=== PATIENT | female | born 1975 | race Caucasian/White ===

== ENCOUNTER 2017-02-14 21:10 | Emergency (ER) | payer SELFPAY ==
--- NOTE | 2017-02-14 21:39 | ER Document Report ---
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 She has been having right inner knee pain for a couple of days with swelling. No redness. She believes she may have a blood clot. Denies any long distance travel or prolonged sitting. States she has been taking an 81 mg aspirin for the past few days. Patient complains of intermittent chest pain suggest her today but denies shortness of breath. Patient states she has a history of Graves' disease and enlarged right atrium. I have greeted and performed a rapid initial assessment of this patient. A comprehensive ED assessment and evaluation of the patient, analysis of test results and completion of the medical decision making process will be conducted by additional ED providers. TRAVEL OUTSIDE OF THE [place] IN LAST 30 DAYS: No - Related Data Allergies/Adverse Reactions: diphenhydramine [From Benadryl] Allergy (Verified 02/14/17 21:34) Past Medical History Past Surgical History: Reports: Hx Oral Surgery - Immunizations Hx Diphtheria, Pertussis, Tetanus Vaccination: No Physical Exam - Vital signs Vitals: Temp Pulse Resp BP Pulse Ox 98.6 F 86 16 120/78 99 02/14/17 21:28 02/14/17 21:28 02/14/17 21:28 02/14/17 21:28 02/14/17 21:28 - Cardiovascular Rhythm: Regular Heart sounds: Normal auscultation Course - Vital Signs Vital signs: Temp Pulse Resp BP Pulse Ox 98.6 F 86 16 120/78 99 02/14/17 21:28 02/14/17 21:28 02/14/17 21:28 02/14/17 21:28 02/14/17 21:28
--- NOTE | 2017-02-14 23:30 | ER Document Report ---
ED General - General Chief Complaint: Leg Pain Stated Complaint: LEG PAIN Notes: Patient is a 41-year-old female who presents with complaint of pain in the right leg. She has a history of factor V disease. She's never had DVT or blood clots. She says pain has been there for a few days. She wants to make sure that she hasn't felt a DVT. She was asked about chest pain in triage. Patient did mention that she sometimes has chest pain. Patient says that she has intermittent quick sharp pains that last only a few seconds. She says she' s been having these pains for a long time and that this is nothing new. She says these pains have been ongoing long before she ever had any pain in her leg. She has no history of coronary disease. She's had no difficulty breathing. She has no fevers. No cough or congestion. No other complaints at this time. TRAVEL OUTSIDE OF THE [place] IN LAST 30 DAYS: No - Related Data Allergies/Adverse Reactions: diphenhydramine [From Benadryl] Allergy (Verified 02/14/17 21:34) Past Medical History - Social History Smoking Status: Never Smoker Chew tobacco use (# tins/day): No Frequency of alcohol use: None Drug Abuse: None Family History: Reviewed & Not Pertinent Renal/ Medical History: Denies: Hx Peritoneal Dialysis Past Surgical History: Reports: Hx Oral Surgery - Immunizations Hx Diphtheria, Pertussis, Tetanus Vaccination: No Review of Systems - Review of Systems Notes: My Normal Review Basic REVIEW OF SYSTEMS: CONSTITUTIONAL : Denies fever, chills, or sweats. Denies recent illness. CARDIOVASCULAR: Intermittent chest pain. RESPIRATORY: Denies cough, cold, or chest congestion. Denies shortness of breath, difficulty breathing, or wheezing. GASTROINTESTINAL: Denies abdominal pain. Denies nausea, vomiting, or diarrhea. Denies constipation. Last BM: MUSCULOSKELETAL: Right leg pain. SKIN: Denies rash or skin lesions. NEUROLOGICAL: Denies altered mental status or loss of consciousness. Denies headache. Denies weakness or paralysis or loss of use of either side. Denies problems with gait or speech. Denies sensory or motor loss. ALL OTHER SYSTEMS REVIEWED AND NEGATIVE. Physical Exam - Vital signs Vitals: Temp Pulse Resp BP Pulse Ox 98.6 F 86 16 120/78 99 02/14/17 21:28 02/14/17 21:28 02/14/17 21:28 02/14/17 21:28 02/14/17 21:28 - Notes Notes: General Appearance: Well nourished, alert, cooperative, no acute distress, no obvious discomfort. Well-appearing. Vitals: reviewed, See vital signs table. Lungs: No wheezing, No rales, No rhonci, No accessory muscle use, good air exchange bilaterally. Heart: Normal rate, Regular rythm, No murmur, no rub Extremities: strength 5/5 in all extremities, good pulses in all extremities, small area with mild reproducible pain palpation over the medial aspect of the right leg just medial to the knee, no redness or swelling to the leg. No edema. Skin: warm, dry, appropriate color, no rash Neuro: speech clear, oriented x 3, normal affect, responds appropriately to questions. Course - Vital Signs Vital signs: Temp Pulse Resp BP Pulse Ox 97.9 F 81 16 111/80 100 02/15/17 00:14 02/15/17 00:14 02/15/17 00:14 02/15/17 00:14 02/15/17 00:14 - Transfer of Care Notes: 02/15/17 05:12 Unfortunately we do not have ultrasound at night to rule out a DVT. I did discuss this with the patient. I informed her that she is awoken stay at night in the ER and will get in the morning where she could return to the ER in the morning when we do have ultrasound and it would be obtained at that time. Patient prefers to go home and then come back to ER. I did talk about providing one shot of Lovenox in the meantime. I did talk to her about the risks and benefits of Lovenox. At this time patient does not want to Lovenox shots and says she would return to ER in the morning for the ultrasound. I do not suspect patient's chest pain is related to PE and/or Ernie disease. Her pain is very sharp and intermittent. Not pleuritic. Does not affect but breathing. She's not tachycardic. She's not tachypneic. Her pain is been ongoing and intermittent for a long time. I do not think she needs any further workup other than EKG in regards to her chest pain. Patient will be discharged home and encouraged return immediately in the morning for her ultrasound. Patient agrees with plan and will be discharged home. Dictation of this chart was performed using voice recognition software; therefore, there may be some unintended grammatical errors. Discharge - Discharge Clinical Impression: Leg pain Qualifiers: Laterality: right Qualified Code(s): M79.604 - Pain in right leg Condition: Good Disposition: HOME, SELF-CARE Additional Instructions: Please return around 7am for reevaluation and for ultrasound of your leg to rule out a blood clot in your leg. Please return to the ER immediately if you have chest pain, difficulty breathing, or feel unwell.
[2017-02-15 00:16] VITALS: BP 111/80
--- NOTE | 2017-02-15 12:37 | EKG REPORT ---
SEVERITY:- NORMAL ECG - SINUS RHYTHM : Confirmed by: Zeynep Delgado 15-Feb-2017 12:36:31
== END 2017-02-15 00:17 | disposition home or self-care (01) ==
LOC: ER 21:10
DX: M79.604 Pain in right leg (principal)
CPT/HCPCS: 71010; 93005; 93010; 99283

== ENCOUNTER 2017-02-15 06:45 | Emergency (ER) | payer SELFPAY ==
--- NOTE | 2017-02-15 07:20 | ER Document Report ---
ED Extremity Problem, Lower - General Time seen by provider: 07:20 Mode of Arrival: Ambulatory Information source: Patient TRAVEL OUTSIDE OF THE [place] IN LAST 30 DAYS: No - HPI Patient complains to provider of: Pain Location: Leg Associated symptoms: Other - See above - General Chief Complaint: Leg Pain Stated Complaint: leg pain Notes: Patient is a 41 year old female, with a past medical history including Factor 5 deficiency and Graves' disease (resolved), who presents to the emergency department complaining of right leg pain onset several days ago. Patient was seen at this facility last night and told to return this morning for a Doppler to check for possible blood clots. Patient states that the pain in located on the inside of her right knee and worsens throughout the day. Patient is not currently on regular medications and does not have a PCP. Patient reports she was seeing a count team clerk for a while and was told that she had an enlarged right atrium and that her heart races at rest but she had to stop seeing him for insurance reasons. (CHRISTELLE MENDOZA) - Related Data Allergies/Adverse Reactions: diphenhydramine [From Benadryl] Allergy (Verified 02/15/17 06:53) Past Medical History - General Information source: Patient - Social History Smoking Status: Never Smoker Chew tobacco use (# tins/day): No Frequency of alcohol use: None Drug Abuse: None Family History: Reviewed & Not Pertinent - Past Medical History Cardiac Medical History: Reports: Other - Hx factor 5 deficiency Endocrine Medical History: Reports: Hx Graves' Disease - resolved Past Surgical History: Reports: Hx Oral Surgery - Immunizations Hx Diphtheria, Pertussis, Tetanus Vaccination: No Review of Systems - Review of Systems Constitutional: No symptoms reported EENT: No symptoms reported Cardiovascular: No symptoms reported Respiratory: No symptoms reported Gastrointestinal: No symptoms reported Genitourinary: No symptoms reported Female Genitourinary: No symptoms reported Musculoskeletal: See HPI, Other - leg pain Skin: No symptoms reported Hematologic/Lymphatic: No symptoms reported Neurological/Psychological: No symptoms reported -: Yes All other systems reviewed and negative Physical Exam - Vital signs Interpretation: Normal - General General appearance: Appears well, Alert - HEENT Head: Normocephalic, Atraumatic - Respiratory Respiratory status: No respiratory distress - Extremities General upper extremity: Normal inspection General lower extremity: Tender - Right leg soft and nontender over femoral and tibial veins. Right knee is tender to palpation medially over medial collateral ligament and medial tibial condyle area - Neurological Neuro grossly intact: Yes Cognition: Normal Orientation: AAOx4 [place] Coma Scale Eye Opening: Spontaneous [place] Coma Scale Verbal: Oriented [place] Coma Scale Motor: Obeys Commands [place] Coma Scale Total: 15 Speech: Normal - Psychological Associated symptoms: Normal affect, Normal mood - Skin Skin Temperature: Warm Skin Moisture: Dry Skin Color: Normal Course - Re-evaluation Re-evalutation: 02/15/17 09:13 Venous Doppler is negative for DVT (TAMMIE CHENG) - Vital Signs Vital signs: Temp Pulse Resp BP Pulse Ox 98.4 F 87 16 108/74 99 02/15/17 06:51 02/15/17 06:51 02/15/17 06:51 02/15/17 06:51 02/15/17 06:51 Discharge - Discharge Clinical Impression: Right medial knee pain Condition: Stable Disposition: HOME, SELF-CARE Additional Instructions: Your pain appears to be coming from the medial aspect of your knee, particularly the tissues and ligaments overlying the medial tibial plateau. This may be due to contusion, strain or overuse. There is no evidence of blood clots on venous Doppler. Treatment for this type of pain is rest, moist heat, and anti-inflammatory medication. Follow-up with local medical doctor if not improving. Scribe Attestation: 02/15/17 09:15 I personally performed the services described in the documentation, reviewed and edited the documentation which was dictated to the scribe in my presence, and it accurately records my words and actions. (TAMMIE CHENG) Scribe Documentation - Scribe Written by Abdi:: abdi Lyn, 02/15/17, 0745 acting as scribe for :: Red
[2017-02-15 09:35] VITALS: BP 108/75
--- NOTE | 2017-02-16 17:47 | XCELERA REPORT ---
[address] [address] Lower Extremity Venous Evaluation Name: EVELYN GAMBOA Age: 41 yrs Gender: Female : 1975 Patient Status: Emergency Patient Location: ER Study Date: 02/15/2017 08:54 AM Procedure: Color flow and duplex imaging of the veins of the right lower extremity as well as the left Common Femoral vein. Reason For Study: R leg pain, factor V Ordering Physician: TAMMIE CHENG Performed By: Wilbert Gaspar Right Sided Venous Evaluation Normal vessel filling wall to wall, compression and augmentation as well as Colour flow down to the infrageniculate veins. Left Sided Venous Evaluation The left common femoral vein is fully compressible. Spontaneous and phasic flow is present in the left common femoral vein. Critical Findings Called in to Dr Cheng. Interpretation Summary No duplex evidence of DVT or obstruction in the right lower extremity nor in the left Common Femoral vein. : TAMMIE CHENG > Jean Pearce
== END 2017-02-15 09:34 | disposition home or self-care (01) ==
LOC: ER 06:45
DX: M25.561 Pain in right knee (principal); D68.2 Hereditary deficiency of other clotting factors; Z88.8 Allergy status to other drugs, medicaments and biological substances
CPT/HCPCS: 93971; 99283

== ENCOUNTER 2019-03-03 16:08 | Emergency (ER) | payer SELFPAY ==
[2019-03-03 16:34] VITALS: BP 106/68
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
[2019-03-03 18:49] LABS: ABSOLUTE BASOPHILS # (AUTO) 0.1 10^3/uL (0.0-0.2); ABSOLUTE EOSINOPHILS # (AUTO) 0.7 10^3/uL (0.0-0.6); ABSOLUTE MONOCYTES (AUTO) 0.6 10^3/uL (0.1-1.4); ABSOLUTE NEUT (AUTO) 4.7 10^3/uL (1.7-8.2); BASOPHILS % (AUTO) 1.1 % (0-2); EOSINOPHILS % (AUTO) 7.2 % (0-6); HEMATOCRIT 29.3 % (36.0-47.0); HEMOGLOBIN 9.6 g/dL (12.0-15.5); MEAN CORPUSCULAR HEMOGLOBIN 24.6 pg (27.0-33.4); MEAN CORPUSCULAR HGB CONC 32.6 g/dL (32.0-36.0); MEAN CORPUSCULAR VOLUME 76 fl (80-97); MONOCYTES % (AUTO) 6.7 % (3-13); PLATELET COUNT 404 10^3/uL (150-450); RED BLOOD COUNT 3.88 10^6/uL (3.72-5.28); RED CELL DISTRIBUTION WIDTH 17.2 % (11.5-14.0); TOTAL CELLS COUNTED % (AUTO) 100 %; WHITE BLOOD COUNT 9.1 10^3/uL (4.0-10.5)
[2019-03-03 18:56] LABS: INTERNATIONAL RATION (INR) 0.89; PROTHROMBIN TIME 12.5 SEC (11.4-15.4)
[2019-03-03 18:57] LABS: PARTIAL THROMBOPLASTIN TIME 28.6 SEC (23.5-35.8)
--- NOTE | 2019-03-03 19:09 | ER Document Report ---
ED Head/Face/Scalp Injury - General Chief Complaint: Head Injury without LOC Stated Complaint: HEAD INJURY Time Seen by Provider: 03/03/19 17:51 Primary Care Provider: [facility] [Provider Group] - Follow up as needed [facility] [Provider Group] - Follow up as needed Mode of Arrival: Ambulatory Information source: Patient Notes: 43-year-old female presented to ED for complaint of head injury around 1 PM. Patient states she was outside working with her father and when there was a 2 by a forward leaning up against the house. She states that accidentally fell hitting her in the head. She denies any loss of consciousness nausea or vomiting but does have a headache. 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 Patient stated she also had a large bruise to the left side of her forehead. Patient is alert oriented respirations regular and unlabored speaking in full sentences walks with a even steady gait. Pupils were equal and reactive to light. TRAVEL OUTSIDE OF THE [place] IN LAST 30 DAYS: No - HPI Patient complains to provider of: Injury, Pain, Swelling - Forehead Injury to: Forehead Location of problem: Forehead Occurred: This afternoon Where: Home, Outdoors Timing: Still present Context: Other - 2 x 2 fell from leaning against a house and hit her in the head Loss consciousness: No loss of consciousness Remembers: Injury, Coming to hospital - Related Data Allergies/Adverse Reactions: diphenhydramine [From Benadryl] Allergy (Verified 03/03/19 16:11) Past Medical History - General Information source: Patient - Social History Smoking Status: Never Smoker Cigarette use (# per day): No Chew tobacco use (# tins/day): No Smoking Education Provided: No Frequency of alcohol use: None Drug Abuse: None Lives with: Family Family History: Reviewed & Not Pertinent Patient has suicidal ideation: No Patient has homicidal ideation: No - Medical History Medical History: Other - Factor V deficiency - Past Medical History Cardiac Medical History: Reports: Other - Factor V deficiency Pulmonary Medical History: Reports: None EENT Medical History: Reports: None Endocrine Medical History: Reports: Hx Graves' Disease - resolved Renal/ Medical History: Reports: None Malignancy Medical History: Reports: None GI Medical History: Reports: None Musculoskeletal Medical History: Reports None Skin Medical History: Reports None Psychiatric Medical History: Reports: None Traumatic Medical History: Reports: None Infectious Medical History: Reports: None Past Surgical History: Reports: Hx Oral Surgery - Immunizations Immunizations up to date: No Hx Diphtheria, Pertussis, Tetanus Vaccination: No Review of Systems - Review of Systems Constitutional: No symptoms reported EENT: Blurred vision Cardiovascular: No symptoms reported Respiratory: No symptoms reported Gastrointestinal: No symptoms reported. denies: Nausea, Vomiting Genitourinary: No symptoms reported Female Genitourinary: No symptoms reported Musculoskeletal: No symptoms reported Skin: Other - Painful swelling not to the left forehead Hematologic/Lymphatic: Other - Factor V deficiency Neurological/Psychological: Headaches. denies: Weakness, Gait changes, Loss of power, Lost consciousness -: Yes All other systems reviewed and negative Physical Exam - Vital signs Vitals: Temp Pulse Resp BP Pulse Ox 98.2 F 76 18 106/68 100 03/03/19 16:32 03/03/19 16:32 03/03/19 16:32 03/03/19 16:32 03/03/19 16:32 Interpretation: Normal - General General appearance: Appears well, Alert - HEENT Head: Ecchymosis, Tenderness. No: Abrasions, Junior's sign, Open wounds, Racoon's eyes - Left forehead Eyes: Normal Conjunctiva: Normal Cornea: Normal Extraocular movements intact: Yes Eyelashes: Normal Pupils: PERRL Visual berman normal: Yes Ears: Normal External canal: Normal Tympanic membrane: Normal Sinus: Normal Nasal: Normal Mouth/Lips: Normal Mucous membranes: Normal Pharynx: Normal Neck: Normal - Respiratory Respiratory status: No respiratory distress Chest status: Nontender Breath sounds: Normal Chest palpation: Normal - Cardiovascular Rhythm: Regular Heart sounds: Normal auscultation Murmur: No - Abdominal Inspection: Normal Distension: No distension Bowel sounds: Normal Tenderness: Nontender Organomegaly: No organomegaly - Back Back: Normal, Nontender - Extremities General upper extremity: Normal inspection, Nontender, Normal color, Normal ROM, Normal temperature General lower extremity: Normal inspection, Nontender, Normal color, Normal ROM, Normal temperature, Normal weight bearing. No: Jenifer's sign - Neurological Neuro grossly intact: Yes Cognition: Normal Orientation: AAOx4 Warren Coma Scale Eye Opening: Spontaneous [place] Coma Scale Verbal: Oriented Warren Coma Scale Motor: Obeys Commands Warren Coma Scale Total: 15 Speech: Normal Motor strength normal: LUE, RUE, LLE, RLE Sensory: Normal - Psychological Associated symptoms: Normal affect, Normal mood - Skin Skin Temperature: Warm Skin Moisture: Dry Skin Color: Normal Course - Re-evaluation Re-evalutation: 03/03/19 20:[address] and lab work with patient and written report of CT and lab were given to patient to follow-up with her primary doctor. Patient's CAT scan was negative at this time. Patient has a swollen bruised area to the left forehead. Pupils equal and react to light, patient walks with a even steady gait. Patient answering all questions appropriately. No gross neurological deficits n oted. - Vital Signs Vital signs: Temp Pulse Resp BP Pulse Ox 98.2 F 76 18 106/68 100 03/03/19 16:32 03/03/19 16:32 03/03/19 16:32 03/03/19 16:32 03/03/19 16:32 - Laboratory Result Diagrams: 03/03/19 18:30 Laboratory results interpreted by me: 03/03/19 18:30 Hgb 9.6 L Hct 29.3 L MCV 76 L MCH 24.6 L RDW 17.2 H Eosinophils % 7.2 H Absolute Eosinophils 0.7 H - Diagnostic Test Radiology reviewed: Image reviewed, Reports reviewed Discharge - Discharge Clinical Impression: Head injury Qualifiers: Encounter type: initial encounter Qualified Code(s): S09.90XA - Unspecified inj ury of head, initial encounter Condition: Stable Disposition: HOME, SELF-CARE Instructions: Family Physicians / Practices Additional Instructions: HEAD INJURY PRECAUTIONS: At this point, there is no evidence that your head injury is serious. Observation is necessary, however. Take only clear liquids for the first few hours, unless told otherwise by the doctor. If no pain medication was prescribed, you may take acetaminophen according to the directions on the bottle. Do not take any medication that may alter your level of alertness (unless you've discussed it with the doctor rama james). Limit activity for the first 24 hours. Bed rest is best. During the first 24 hours, check to see approximately every two to three hours that the patient is easily arousable, responds normally, and can perform common tasks such as walking without difficulty. Contact your doctor or go to the hospital if any of the following things occur: Persistent vomiting, difficulty in arousing the patient, worsening or continued headache, or failure to improve as expected. Head injuries can cause symptoms that persist for a few days or even a few weeks. CONTUSION: Your injury has resulted in a contusion -- a crushing of the deep tissues. No injury to important structures was detected during the physician's exam. Contusions vary in the amount of pain they cause, and in the length of time required for healing. Typically, the area will become bruised, and will remain painful to touch for two or three weeks. However, most patients are back to working and playing within a few days. After the initial period of rest and cold-packs, your symptoms (together with the doctor's recommendations) will determine how rapidly you can get back to full activity. Usually this means "do what feels okay, but don't do things that hurt." If re-examination was recommended, it's important to follow up as instructed. Call the doctor or return any time if pain increases, if swelling becomes severe, if you develop numbness or weakness in an injured extremity, or if any other alarming symptoms occur. USE OF TYLENOL (ACETAMINOPHEN): Acetaminophen may be taken for pain relief or fever control. It's much safer than aspirin, offering a wider range of "safe" dosages. It is safe during . Some brand names are Tylenol, Panadol, Datril, Anacin 3, Tempra, and Liquiprin. Acetaminophen can be repeated every four hours. The following are maximum recommended dosages: WEIGHT Dose Drops Elixir Chewable(80mg) (LBS.) drprs=droppers tsp=teaspoon 6 40 mg 0.4 ml (1/2) 6-11 80 mg 0.8 ml (full) tsp 1 tab 12-16 120 mg 1 1/2 drprs 3/4 tsp 1 1/2 tabs 17-23 160 mg 2 drprs 1 tsp 2 tabs 24-30 240 mg 3 drprs 1 1/2 tsp 3 tabs 30-35 320 mg 2 tsp 4 tabs 36-41 360 mg 2 1/4 tsp 4 1/2 tabs 42-47 400 mg 2 1/2 tsp 5 tabs 48-53 480 mg 3 tsp 6 tabs 54-59 520 mg 3 1/4 tsp 6 1/2 tabs 60-64 560 mg 3 1/2 tsp 7 tabs 65-70 600 mg 3 3/4 tsp 7 1/2 tabs 71-76 640 mg 4 tsp 8 tabs 77-82 720 mg 4 1/2 tsp 9 tabs 83-88 800 mg 5 tsp 10 tabs >89 pounds or adults 650 mg to 900 mg Acetaminophen can be repeated every four hours. Maximum dose not to exceed 4000 mg a day. These maximum recommended dosages are slightly higher than the dosages written on the product container, but these dosages are very safe and below the toxic dosage for acetaminophen. ICE PACKS: Apply ice packs frequently against the painful area. Many different schedules are recommended, such as "20 minutes on, 20 minutes off" or "one hour ice, two hours rest." If you need to work, you may need to go longer between i ce treatments. You should plan to have the area ice packed AT LEAST one fourth of the time. The ice should be applied over the wrap, tape, or splint, or over a layer of cloth -- not directly against the skin. Some ice bags have a built-in cloth and can be put directly on the skin. I have given you a written report of your lab work and your CT results. Please call a primary doctor in follow-up within the next 3-5 days or return to the ED for any increase in symptoms. I have given you a and head injury precautions if you have any change in orientation mentation any change in your movement or strength in your arms or any other concerning symptoms. Your hemoglobin and hematocrit are low. He states you do not have a doctor you do not follow-up with Dr. you are vegetarian and you are anemic. These need to be monitored. You also need to be monitored for your factor V deficiency. I have given you the name and number of the [facility] as well as [facility] and other primary care doctors. As we have discussed you need to go and apply for Medicaid and then take your denial letter with you to [facility] to get established. You could call [facility] and discussed with them what all you need to do besides what I have given you. FOLLOW-UP CARE: If you have been referred to a physician for follow-up care, [facility] as you were instructed or within the next two days. If you experience worsening or a significant change in your symptoms, notify the physician immediately or return to the Emergency Department at any time for re-evaluation. Referrals: [facility] [Provider Group] - Follow up as needed [facility] [Provider Group] - Follow up as needed
== END 2019-03-03 19:14 | disposition home or self-care (01) ==
LOC: ER 16:08
DX: S09.90XA Unspecified injury of head, initial encounter (principal); W20.8XXA Other cause of strike by thrown, projected or falling object, initial encounter; Y92.009 Unspecified place in unspecified non-institutional (private) residence as the place of occurrence of the external cause; D68.51 Activated protein C resistance
CPT/HCPCS: 36415; 70450; 85025; 85610; 85730; 99284

== ENCOUNTER 2019-04-13 19:41 | Emergency (ER) | payer SELFPAY ==
[2019-04-13 19:57] VITALS: BP 123/76
--- NOTE | 2019-04-13 20:09 | ER Document Report ---
ED Medical Screen (RME) - General Chief Complaint: S/S of Possible Stroke Stated Complaint: FACIAL PAIN Time Seen by Provider: 04/13/19 20:04 Mode of Arrival: Ambulatory Information source: Patient Notes: 43-year-old female presented to ED for complaint of numbness to the bottom lip to spread to the chin and the left cheek. When I touched her cheek with my finger and asked to which she did not touch she was not able to tell me. When I touched it with the end of the 20-gauge needle without break in the skin she knew exactly where I had touched her. Patient's facial expressions are equal there is no droop. There is no palmar drift. Smile is equal eyebrows raise are equal pupils are equal and react to light. 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 Consulted Dr. Nina who stated to blood work CT the head and she will be seen by another provider. I have greeted and performed a rapid initial assessment of this patient. A comprehensive ED assessment and evaluation of the patient, analysis of test results and completion of medical decision making process will be conducted by an additional ED providers. Dictation of this chart was performed using voice recognition software; therefore, there may be some unintended grammatical errors. TRAVEL OUTSIDE OF THE [place] IN LAST 30 DAYS: No - Related Data Allergies/Adverse Reactions: diphenhydramine [From Benadryl] Allergy (Verified 03/03/19 16:11) Past Medical History Endocrine Medical History: Reports: Hx Graves' Disease - resolved Renal/ Medical History: Denies: Hx Peritoneal Dialysis Past Surgical History: Reports: Hx Oral Surgery - Immunizations Immunizations up to date: No Hx Diphtheria, Pertussis, Tetanus Vaccination: No Physical Exam - Vital signs Vitals: Temp Pulse Resp BP Pulse Ox 98.5 F 78 16 123/76 100 04/13/19 19:55 04/13/19 19:55 04/13/19 19:55 04/13/19 19:55 04/13/19 19:55 Course - Vital Signs Vital signs: Temp Pulse Resp BP Pulse Ox 98.5 F 78 16 123/76 100 04/13/19 19:55 04/13/19 19:55 04/13/19 19:55 04/13/19 19:55 04/13/19 19:55
--- NOTE | 2019-04-13 20:43 | RADIOLOGY REPORT (SQ) ---
EXAM DESCRIPTION: CT HEAD WITHOUT IV CONTRAST COMPLETED DATE/TME: 04/13/2019 20:10 CLINICAL HISTORY: 43 years, Female, numbness to left lower face COMPARISON: 03/03/2019. TECHNIQUE: CT brain without contrast. This exam was performed according to our departmental dose optimization program which includes use of automated exposure control, adjustment of the mA and/or kV according to patient size and/or use of iterative reconstruction technique. Images stored on PACS. All CT scanners at this facility use dose modulation, iterative reconstruction, and/or weight based dosing when appropriate to reduce radiation dose to as low as reasonably achievable (ALARA). [facility]: Dose Right [facility]: CareDose [facility]: Dose Right [facility]: Teradose 4D [facility]: Language Logistics LIMITATIONS: None. FINDINGS: The ventricles, sulci, and cisterns are within normal limits. The sharp-white matter differentiation is preserved. There is no mass effect, midline shift, intra- or extra-axial fluid collection/acute hemorrhage. The osseous structures are unremarkable. The paranasal sinuses and mastoid air cells are clear. IMPRESSION: No acute intracranial abnormalities. TECHNICAL DOCUMENTATION: Quality ID # [id number]: Final reports with documentation of one or more dose reduction techniques (e.g., Automated exposure control, adjustment of the mA and/or kV according to patient size, use of iterative reconstruction technique) copyright 2011 [email or web address]- All Rights Reserved
[2019-04-13 20:48] LABS: APPEARANCE,URINE CLEAR; BILIRUBIN,URINE NEGATIVE (NEGATIVE); COLOR,URINE YELLOW; GLUCOSE, URINE NEGATIVE (NEGATIVE); KETONES,URINE 20 mg/dL (NEGATIVE); LEUKOCYTE ESTERASE,URINE NEGATIVE (NEGATIVE); NITRITE,URINE NEGATIVE (NEGATIVE); PROTEIN,URINE NEGATIVE (NEGATIVE); URINE SPECIFIC GRAVITY 1.026; UROBILINOGEN,URINE NEGATIVE mg/dL (<2.0)
[2019-04-13] MEDS ORDERED: CLINDAMYCIN HCL 150 MG CAPSULE PO ONE (22:03)
--- NOTE | 2019-04-13 22:05 | ER Document Report ---
ED General - General Chief Complaint: S/S of Possible Stroke Stated Complaint: FACIAL PAIN Time Seen by Provider: 04/13/19 20:04 Mode of Arrival: Ambulatory Notes: Patient is a 43-year-old female with past medical history of Graves' disease who presents with complaints of paresthesias to her left mandibular region. Patient states that it started earlier today, progressed to involve most of the lower portion of her left jaw and lip. Describes it as a sensation of paresthesias or tingling but denies true loss of sensation. Denies any motor weakness to the face. Denies symptoms any other location. Regards symptoms as being mild, constant since onset. No exacerbating or alleviating factors. Denies headache, fever or constitutional symptoms. No history of similar symptoms in the past. Has not seen her primary care physician regarding today's concerns. TRAVEL OUTSIDE OF THE [place] IN LAST 30 DAYS: No - Related Data Allergies/Adverse Reactions: diphenhydramine [From Benadryl] Allergy (Verified 03/03/19 16:11) Past Medical History - General Information source: Patient - Social History Smoking Status: Never Smoker Frequency of alcohol use: None Drug Abuse: None Lives with: Family Family History: Reviewed & Not Pertinent Patient has suicidal ideation: No Patient has homicidal ideation: No Endocrine Medical History: Reports: Hx Graves' Disease - resolved Renal/ Medical History: Denies: Hx Peritoneal Dialysis Past Surgical History: Reports: Hx Oral Surgery - Immunizations Immunizations up to date: No Hx Diphtheria, Pertussis, Tetanus Vaccination: No Review of Systems - Review of Systems Notes: Constitutional: Negative for fever. HENT: Negative for sore throat. Eyes: Negative for visual changes. Cardiovascular: Negative for chest pain. Respiratory: Negative for shortness of breath. Gastrointestinal: Negative for abdominal pain, vomiting or diarrhea. Genitourinary: Negative for dysuria. Musculoskeletal: Negative for back pain. Skin: Negative for rash. Neurological: Negative for headaches, weakness or numbness. Positive for paresthesias to the left lower face 10 point ROS negative except as marked above and in HPI. Physical Exam - Vital signs Vitals: Temp Pulse Resp BP Pulse Ox 98.5 F 78 16 123/76 100 04/13/19 19:55 04/13/19 19:55 04/13/19 19:55 04/13/19 19:55 04/13/19 19:55 Interpretation: Normal Notes: PHYSICAL EXAMINATION: GENERAL: Well-appearing, well-nourished and in no acute distress. HEAD: Atraumatic, normocephalic. EYES: Pupils equal round and reactive to light, extraocular movements intact, sclera anicteric, conjunctiva are normal. ENT: nares patent, oropharynx clear without exudates. Moist mucous membranes. NECK: Normal range of motion, supple without lymphadenopathy LUNGS: Breath sounds clear to auscultation bilaterally and equal. No wheezes rales or rhonchi. HEART: Regular rate and rhythm without murmurs ABDOMEN: Soft, nontender, normoactive bowel sounds. No guarding, no rebound. No masses appreciated. EXTREMITIES: Normal range of motion, no pitting or edema. No cyanosis. NEUROLOGICAL: Face symmetric. Tongue protrudes midline. Extraocular motions intact. Pupils are 2 mm and equally reactive. Normal speech, normal gait. 5 out of 5 strength in both the distal and proximal upper and lower extremities bilaterally. Sensation is grossly intact throughout. Finger to nose testing normal. Pronator drift normal. PSYCH: Normal mood, normal affect. SKIN: Warm, Dry, normal turgor, no rashes or lesions noted. Course - Re-evaluation Re-evalutation: 04/13/19 22:03 Patient presents with paresthesias over her left mandible. The patient has no focal neurologic deficits on exam. NIH stroke scale is 0. She does not have any facial droop. She does have poor dentition, could be some irritation from a dental infection versus a possible neuropraxia of branch 3 of the trigeminal nerve which seems much less likely. CVA not on differential given absence of any neurologic findings or any true loss of sensation as well as patient's characterization of very localized area of paresthesias. Patient likewise in agreement. CT of the head ordered in triage noted to be normal. No indication for labs or further imaging. At this time will discharge with return precautions and follow-up recommendations. Verbal discharge instructions given a the bedside and opportunity for questions given. Medication warnings reviewed. Patient is in agreement with this plan and has verbalized understanding of return precautions and the need for primary care follow-up in the next 24-72 hours. - Vital Signs Vital signs: Temp Pulse Resp BP Pulse Ox 98.5 F 78 11 L 123/76 98 04/13/19 19:55 04/13/19 20:05 04/13/19 22:00 04/13/19 20:05 04/13/19 22:00 - Laboratory Laboratory results interpreted by me: 04/13/19 20:20 Urine Ketones 20 H Urine Blood SMALL H - Diagnostic Test Radiology reviewed: Image reviewed, Reports reviewed Radiology results interpreted by me: 04/13/19 22:04 CT head: No acute intracranial bleed or mass Discharge - Discharge Clinical Impression: Facial tingling, Dental caries Condition: Good Disposition: HOME, SELF-CARE Additional Instructions: You were seen today for some tingling over the your left lower jaw. The exact cause is uncertain but could be related to a dental infection versus a possible irritation of your trigeminal nerve. Please take the antibodies as prescribed. Take ibuprofen 600 mg every 6 hours for the next 1 week to see if this helps resolve your symptoms. Please return to the emergency department immediately if you have progression of your symptoms, focal weakness, loss of sensation, severe headache, fever, or any other symptoms that are worrisome to you.
== END 2019-04-13 22:41 | disposition home or self-care (01) ==
LOC: ER 19:41
DX: R20.2 Paresthesia of skin (principal); K02.9 Dental caries, unspecified
CPT/HCPCS: 70450; 81001; 99284

== ENCOUNTER → 2019-08-20 | Outpatient (CLI) | payer MEDICAID ==
--- NOTE | 2019-08-20 14:16 | RADIOLOGY REPORT (SQ) ---
EXAM DESCRIPTION: LUMBAR SPINE COMPLETE COMPLETED DATE/TIME: 08/20/2019 1:19 pm REASON FOR STUDY: OTHER INTERVERTEBRAL DISC DISPLACEMENT, LUMBAR REGION M51.26 OTHER INTERVERTEBRAL DISC DISPLACEMENT, LUMBAR REGION COMPARISON: None. NUMBER OF VIEWS: Five views including obliques. TECHNIQUE: AP, lateral, oblique, and sacral radiographic images acquired of the lumbar spine. LIMITATIONS: None. FINDINGS: MINERALIZATION: Normal. SEGMENTATION: Normal. No transitional anatomy. ALIGNMENT: Straightening of the normal lumbar lordosis. VERTEBRAE: Maintained height. No fracture or worrisome bone lesion. DISCS: Mild disc height loss and osteophytosis within the lower thoracic spine. POSTERIOR ELEMENTS: Pedicles and facets are intact. No pars defect or posterior arch defects. HARDWARE: None in the spine. PARASPINAL SOFT TISSUES: Normal. PELVIS: Intact as visualized. No fractures or worrisome bone lesions. SI joints intact. OTHER: No other significant finding. IMPRESSION: No evidence of acute bony abnormality of the lumbar spine. Mild multilevel disc height loss and endplate change in the lower thoracic spine. TECHNICAL DOCUMENTATION: JOB ID: [id number] Managed by [employer]- All Rights Reserved Reading location - IP/workstation name: [facility]-
== END ==
LOC: OD 12:59
PROVIDERS: ATTEND Nurse Practitioner Family
DX: M51.26 Other intervertebral disc displacement, lumbar region (principal)
CPT/HCPCS: 72110

== ENCOUNTER → 2020-08-23 | Outpatient (CLI) | payer SELFPAY ==
[2020-08-23 10:45] VITALS: BP 107/67
--- NOTE | 2020-08-23 10:45 | ER [facility] ASSESSMENT REPORT ---
Intake - In the Last 14 days Have you traveled outside [place]?: No Have you been in close contact with someone CONFIRMED: No Worked in Healthcare?: Yes - Symptoms Subjective Fever([place] feverish): No Chills: No Muscule Aches: Yes Runny Nose: No Sore Throat: No Cough (New or worsening chronic cough): No Shortness of breath: No Nausea or Vomiting: Yes Headache: Yes Abdominal Pain: No Diarrhea(3 or more loose stools in last 24 hours): No - Do you have any of the following Chronic lung disease: Asthma or emphysema or COPD: No Cystic Fibrosis: No Diabetes: No High Blood Pressure: No Cardiovascular Disease: Yes Cardiovascular Disease Comment: Enlarged left atrium Chronic Kidney Disease: No Chronic Liver Disease: No Chronic blood disorder like Sickle Cell Disease: No Weak immune system due to disease or medication: No Neurologic condition that limits movement: No Developmental delay - Moderate to Severe: No Recent (within past 2 weeks) or current : No Morbid Obesity (>100 pounds over ideal weight): No - Objective Temperature: 9.0 F Pulse Rate: 80 Respiratory Rate: 16 Blood Pressure: 107/67 O2 Sat by Pulse Oximetry: 98 Objective: Given above, testing performed: If Testing Performed: Test Specimen Type Sent to General - General Information source: Patient Notes: Patient presents to the [facility] for screening for the coronavirus. Patient reports having body aches, headache and nausea. Patient reports symptoms for the past 4 days. 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 - Related Data Allergies/Adverse Reactions: diphenhydramine [From Benadryl] Allergy (Verified 03/03/19 16:11) Past Medical History - General Information source: Patient - Social History Smoking Status: Never Smoker Family History: Reviewed & Not Pertinent - Past Medical History Cardiac Medical History: Reports: Other - Enlarged atrium Endocrine Medical History: Reports: Hx Graves' Disease - resolved Renal/ Medical History: Denies: Hx Peritoneal Dialysis Past Surgical History: Reports: Hx Oral Surgery Physical Exam - Notes Notes: The patient was evaluated during the global Covid 19 pandemic, and that diagnosis was suspected/considered upon their initial presentation. Their evaluation, treatment and testing was consistent with current guidelines for patients who present with complaints or symptoms that may be related to Covid 19. Full physical exam could not be performed due to covid 19 isolation protocols. Constitutional: Nontoxic appearance, no acute distress Eyes: Nonicteric, extraocular movements intact, sclera clear ENT: Posterior pharynx clear without exudates, no tonsillar hypertrophy Cardiovascular: Heart rate and rhythm regular, no JVD Respiratory: Breath sounds clear bilaterally, nonlabored breathing, no use of accessory muscles, no tachypnea Gastrointestinal: Abdomen not distended Muculoskeletal: Moves all extremities well Skin: Normal color Neuro: Awake alert oriented, normal speech Psych: Normal mood and affect Diagnostic Results Laboratory Results: Patient presents with upper respiratory symptoms worrisome for possible Covid 19. Patient does not have emergency worrying symptoms such as difficulty breathing, shortness of breath, chest pain, pressure, confusion or cyanosis. Patient appears suitable for discharge as they are not of an advanced age, do not have any chronic medical conditions such as diabetes, CAD, immune deficiency, chronic lung disease or chronic kidney disease. Patient's vital signs are stable and patient is nontoxic in appearance. Good return precautions have been discussed with patient, patient verbalized understanding and is agreeable with discharge plan of care at this time. Patient Education/Counseling Counseling/Education: Patient was provided with discharge information including: As a person under investigation for Covid 19, the [place] department of Health and Human Services, division of public health advises you to adhere to the following guidance until your test results are reported to you. If your test result is positive, you will receive additional information from your provider and your local health department at that time. Remain at home until you are cleared by the health provider or public health authorities. Keep a log of visitors to your home, notify any visitors to your home of your isolation status. If you plan to move to a new address or leave the county, notify the local health department in your County. Call your doctor or seek care if you have an urgent medical need. Before seeking medical care, call ahead to get instructions from the provider before arriving at the medical office clinic or hospital. Notify them that you are being tested for the virus that causes Covid 19 so that arrangements can be made, as necessary, to prevent transmission to others in the healthcare setting. Next, notify the local health department in your county. If a medical emergency arises and you need to call 911, inform the first responders that you are being tested for the virus that causes Covid 19. Next, notify the local health department in your county. [facility] Discharge - Discharge Clinical Impression: Encounter for screening laboratory testing for COVID-19 virus Condition: Stable Disposition: Home; Selfcare
[2020-08-23 14:45] LABS: A TYPE INFLUENZA AG NEGATIVE (NEGATIVE); B INFLUENZA AG NEGATIVE (NEGATIVE)
== END ==
LOC: RDC 10:23
PROVIDERS: ATTEND Nurse Practitioner Family
DX: Z20.828 Contact with and (suspected) exposure to other viral communicable diseases (principal); M79.10 Myalgia, unspecified site; R51.9 Headache, unspecified; R11.0 Nausea; Z88.8 Allergy status to other drugs, medicaments and biological substances
CPT/HCPCS: 87635; 87804; C9803